=== PATIENT | male | born 1995 | race Caucasian/White ===

== ENCOUNTER 2018-12-26 00:41 | Emergency (ER) | payer MEDICAID ==
[~2018-12-26] VITALS: Ht 165.1 cm; Wt 59.0 kg
[2018-12-26 00:41] VITALS: BP_SYST 113
[2018-12-26 01:57] LABS: BASOPHILS % (AUTO) 0.5 % (0.0-2.0); EOSINOPHILS # (AUTO) 0.1 K/uL (0.0-0.4); EOSINOPHILS % (AUTO) 0.9 % (0.0-4.0); HEMATOCRIT 45.2 % (36-54); HEMOGLOBIN 15.8 g/dL (14.0-18.0); LYMPHOCYTES # (AUTO) 1.9 K/uL (1.0-5.5); LYMPHOCYTES % (AUTO) 27.3 % (20.5-51.5); MEAN CORPUSCULAR HEMOGLOBIN 32 pg (27-31); MEAN CORPUSCULAR HGB CONC 35 % (32-36); MEAN CORPUSCULAR VOLUME 91 fL (79.0-98.0); MONOCYTES # (AUTO) 0.6 K/uL (0.0-1.0); MONOCYTES % (AUTO) 8.1 % (1.7-9.3); NEUTROPHILS # (AUTO) 4.3 K/uL (1.8-7.7); NEUTROPHILS % (AUTO) 63.2 % (40.0-70.0); PLATELET COUNT (AUTO) 213 K/uL (130-430); RED BLOOD CELL COUNT(AUTO) 4.94 MIL/uL (4.2-6.2); RED CELL DISTRIBUTION WIDTH 12.4 % (9.0-15.0); WHITE BLOOD COUNT (AUTO) 6.8 K/uL (4.8-10.8)
[2018-12-26 02:33] LABS: CALCIUM 9.5 mg/dL (8.4-11.0); CREATININE 1.31 mg/dL (0.55-1.30); POTASSIUM 3.3 mmol/L (3.5-5.1)
[2018-12-26 02:45] LABS: ALBUMIN 4.3 g/dL (3.4-4.8); THYROID STIMULATING HORMONE 1.66 uIu/mL (0.36-3.74); TOTAL BILIRUBIN 0.5 mg/dL (0.0-1.0)
[2018-12-26 03:21] VITALS: BP_SYST 115
== END 2018-12-26 03:19 | disposition home or self-care (01) ==
LOC: SED 00:41
DX: R00.2 Palpitations (principal); R07.9 Chest pain, unspecified
CPT/HCPCS: 36415; 71045; 80053; 84443-TC; 84484; 85025; 93005; 99284

== ENCOUNTER 2022-06-11 03:29 | Emergency (ER) | payer SELFPAY ==
[~2022-06-11] VITALS: Ht 167.6 cm; Wt 59.0 kg
[2022-06-11 03:40] VITALS: BP_SYST 145
[2022-06-11] MEDS ORDERED: KETOROLAC TROMETHAMINE 60 MG/2 ML VIAL IM ONE (04:15)
[2022-06-11] MEDS ORDERED: NAPR-1172 PO (05:48)
[2022-06-11] MEDS ORDERED: PENI250T2 PO (05:48)
[2022-06-11 05:55] VITALS: BP_SYST 132
== END 2022-06-11 05:55 | disposition home or self-care (01) ==
LOC: SED 03:29
DX: K08.89 Other specified disorders of teeth and supporting structures (principal); R03.0 Elevated blood-pressure reading, without diagnosis of hypertension; Z79.899 Other long term (current) drug therapy
CPT/HCPCS: 99283; 96372; J1885